=== PATIENT | female | born 1940 | race Caucasian/White ===

== ENCOUNTER 2017-11-05 10:19 | Emergency (ER) | payer OTHER, MEDICAID ==
[~2017-11-05] VITALS: Ht 152.4 cm; Wt 83.9 kg
[~2017-11-05 10:19] MED LIST: ATEN100T PO; LEVO137T24 PO; PREG50CA PO
--- NOTE | 2017-11-05 11:00 | NUR ---
BIB [facility] C/O SOB FROM HOME, NAD NOTED, VSS, RESP EVEN AND UNLABORED, PT WAS PUT ON MONITOR, WAITING FOR MD MARSHALL.
[2017-11-05] MEDS ORDERED: methylPREDNISolone SOD SUCC 125 MG/2ML VIAL ONE (11:19)
[2017-11-05] MEDS ORDERED: IPRATROPIUM NEB FS 0.5 MG/2.5 ML AMPUL.NEB NEB ONE (11:30)
[2017-11-05] MEDS ORDERED: methylPREDNISolone SOD SUCC 125 MG/2ML VIAL IV ONE (11:30)
[2017-11-05] MEDS ORDERED: ALBUTEROL FS 2.5 MG/0.5 ML VIAL.NEB NEB ONE (11:30)
[2017-11-05 11:32] LABS: BASOPHILS # (AUTO) 0.1 /CMM (0.0-0.2); BASOPHILS % (AUTO) 0.7 % (0.0-2.0); EOSINOPHILS % (AUTO) 1.3 % (0.0-6.0); HEMATOCRIT 28 % (33-45); HEMOGLOBIN 8.7 g/dL (11.5-14.8); LYMPHOCYTES # (AUTO) 2.2 /CMM (0.8-4.8); LYMPHOCYTES % (AUTO) 19.5 % (20.0-44.0); MEAN CORPUSCULAR HGB CONC 32 g/dl (31.0-36.0); MEAN CORPUSCULAR VOLUME 66 fL (82-100); MONOCYTES # (AUTO) 0.8 /CMM (0.1-1.30); MONOCYTES % (AUTO) 7.2 % (2.0-12.0); NEUTROPHILS # (AUTO) 8.1 /CMM (1.8-8.9); NEUTROPHILS % (AUTO) 71.3 % (43.0-81.0); PLATELET COUNT (AUTO) 268 /CMM (150-450); RDW COEFFICIENT OF VARIATION 18.7 (11.5-15.0); RED BLOOD CELL COUNT(AUTO) 4.21 MIL/uL (4.0-5.2); WHITE BLOOD COUNT (AUTO) 11.3 K/uL (4.3-11.0)
[2017-11-05 11:50] LABS: CALCIUM, SERUM 8.9 mg/dL (8.5-10.1); CARBON DIOXIDE 28 mmol/L (21-32); CHLORIDE 104 mmol/L (98-107); GLUCOSE 93 mg/dL (74-106); POTASSIUM 4.1 mmol/L (3.5-5.1); SODIUM SERUM 140 mmol/L (136-145); UREA NITROGEN, BLOOD 24 mg/dL (7-18)
[2017-11-05 11:58] LABS: TROPONIN I 0.022 ng/mL (0.00-0.056)
[2017-11-05 12:16] LABS: INR 0.92 (0.85-1.15)
[2017-11-05] MEDS ORDERED: FUROSEMIDE 40 MG/4 ML VIAL ONE (12:57)
[2017-11-05] MEDS ORDERED: FUROSEMIDE 40 MG/4 ML VIAL IV ONE (13:00)
[2017-11-05 13:15] VITALS: BP 149/82
--- NOTE | 2017-11-05 13:16 | NUR ---
Patient does not wish to proceed with medical care recommended by Dr. Etienne. Patient given information related to possible complications, up to and including , which could occur as a result of leaving the hospital at this time. Patient verbalizes understanding of risks involved due to leaving against medical advice. Patient has signed AMA form.
== END 2017-11-05 13:19 | disposition left against medical advice (07) ==
LOC: ER 10:20
DX: J44.1 Chronic obstructive pulmonary disease with (acute) exacerbation (principal); F17.200 Nicotine dependence, unspecified, uncomplicated
CPT/HCPCS: 36415; 71045; 80048; 83880; 84484; 85025; 85730; 93005; 96374; 96375; 99285; A4606; J1940; J2930; Z7610

== ENCOUNTER 2018-05-30 02:03 | Inpatient (IN) | payer MEDICARE, OTHER ==
[~2018-05-30] VITALS: Ht 167.6 cm; Wt 73.9 kg
--- NOTE | 2018-05-30 02:03 | NUR ---
PT BIB [facility] 102 WITH A C/O SOB. PT STATED THAT SHE WAS SOB ALL DAY AND IS HAVING A HARD TIME BREATHING. WHEEZES NOTED BILATERALLY AND TIGHTNESS NOTED. PT HAS COPD HX. PT WENT TO ER 1 AND IS ON THE MONITOR AND CONTINUOUS PULSE OX. PT REC'D A TOTAL OF 10MG ALBUTEROL IN THE FIELD. RT WAS CALLED.
--- NOTE | 2018-05-30 02:10 | NUR ---
O2 INCREASED TO 4LVIA NC. RT IS AT THE BEDSIDE.
--- NOTE | 2018-05-30 02:10 | NUR ---
BREATHING TX IS FINISHED. PT IS NOW ON 2L O2 VIA NC.
--- NOTE | 2018-05-30 02:13 | NUR ---
Note undone in EDM - 05/30/18 at 0229 by SAMUEL PT BIB [facility] 102 WITH A C/O SOB. PT STATED THAT SHE WAS SOB ALL DAY AND IS HAVING A HARD TIME BREATHING. WHEEZES NOTED BILATERALLY AND TIGHTNESS NOTED. PT HAS COPD HX. PT WENT TO ER 1 AND IS ON THE MONITOR AND CONTINUOUS PULSE OX. PT REC'D A TOTAL OF 10MG ALBUTEROL IN THE FIELD. RT WAS CALLED.
[2018-05-30] MEDS ORDERED: methylPREDNISolone SOD SUCC 125 MG/2ML VIAL ONE (02:16)
[2018-05-30] MEDS ORDERED: ALBUTEROL FS 2.5 MG/3 ML VIAL.NEB ONE ×2 (02:29→03:20)
[2018-05-30] MEDS ORDERED: IPRATROPIUM NEB FS 0.5 MG/2.5 ML AMPUL.NEB ONE (02:29)
[2018-05-30] MEDS ORDERED: methylPREDNISolone SOD SUCC 125 MG/2ML VIAL IV ONE (02:30)
[2018-05-30] MEDS ORDERED: ALBUTEROL FS 2.5 MG/3 ML VIAL.NEB CONTNEB ONE (02:30)
[2018-05-30] MEDS ORDERED: IPRATROPIUM NEB FS 0.5 MG/2.5 ML AMPUL.NEB NEB ONE (02:30)
--- NOTE | 2018-05-30 02:35 | NUR ---
CXR IN PROGRESS AT THE BEDSIDE.
--- NOTE | 2018-05-30 02:39 | NUR ---
PT IS ON A BREATHING TX. PT APPEARS TO BE RESTING COMFORTABLY IN BED.
[2018-05-30 02:55] LABS: CALCIUM, SERUM 9.1 mg/dL (8.5-10.1); CARBON DIOXIDE 31 mmol/L (21-32); CHLORIDE 105 mmol/L (98-107); CREATININE 1.3 mg/dL (0.6-1.3); GLUCOSE 107 mg/dL (74-106); POTASSIUM 6.1 mmol/L (3.5-5.1); SODIUM SERUM 142 mmol/L (136-145); UREA NITROGEN, BLOOD 23 mg/dL (7-18)
[2018-05-30 02:58] LABS: BASOPHILS # (AUTO) 0.1 /CMM (0.0-0.2); BASOPHILS % (AUTO) 1.2 % (0.0-2.0); EOSINOPHILS % (AUTO) 0.8 % (0.0-6.0); HEMATOCRIT 29 % (33-45); LYMPHOCYTES # (AUTO) 0.5 /CMM (0.8-4.8); MEAN CORPUSCULAR HGB CONC 31 g/dl (31.0-36.0); MEAN CORPUSCULAR VOLUME 69 fL (82-100); MONOCYTES # (AUTO) 0.1 /CMM (0.1-1.30); MONOCYTES % (AUTO) 1.1 % (2.0-12.0); NEUTROPHILS # (AUTO) 6.5 /CMM (1.8-8.9); NEUTROPHILS % (AUTO) 89.9 % (43.0-81.0); PLATELET COUNT (AUTO) 370 /CMM (150-450); RED BLOOD CELL COUNT(AUTO) 4.25 MIL/uL (4.0-5.2); WHITE BLOOD COUNT (AUTO) 7.3 K/uL (4.3-11.0)
--- NOTE | 2018-05-30 03:01 | NUR ---
PT IS C/O RT SIDED CHRONIC BACK PAIN. DR. MENDEZ IS AWARE.
[2018-05-30 03:09] LABS: ALANINE AMINOTRANSFERASE 51 U/L (12-78); ALBUMIN 3.5 g/dL (3.4-5.0); ALKALINE PHOSPHATASE 91 U/L (46-116); ASPARTATE AMINOTRANSFERASE 49 U/L (15-37); B-TYPE NATRIURETIC PEPTIDE 787 PG/ML (0-125); BILIRUBIN,DIRECT 0.1 mg/dL (0.0-0.2); BILIRUBIN,TOTAL 0.2 mg/dL (0.2-1.0); TOTAL PROTEIN, SERUM 7.2 g/dL (6.4-8.2)
--- NOTE | 2018-05-30 03:13 | NUR ---
UNABLE TO OBTAIN PT'S HOME MEDICATION LIST. PT IS NOT ABLE TO TELL ME WHAT MEDICATION/DOSAGE SHE TAKES. PT IS ON 3L O2 VIA NC "09/01". PT IS 'ON HOSPICE IN ORDER TO OBTAIN OXYGEN". [facility].
[2018-05-30] MEDS ORDERED: SODIUM POLYSTYRENE SULFONATE 15 G/60 ML BOTTLE ONE (03:18)
--- NOTE | 2018-05-30 03:25 | NUR ---
BREATHING TX STARTED.
[2018-05-30] MEDS ORDERED: SODIUM POLYSTYRENE SULFONATE 15 G/60 ML BOTTLE PO ONE (03:30)
[2018-05-30] MEDS ORDERED: ALBUTEROL FS 2.5 MG/3 ML VIAL.NEB NEB ONE (03:30)
--- NOTE | 2018-05-30 03:34 | NUR ---
BREATHING TX FINISHED. RT IS AT THE BEDSIDE.
[2018-05-30] MEDS ORDERED: PSEUDOEPHEDRINE HCL 30 MG TABLET ONE (03:39)
[2018-05-30] MEDS ORDERED: PSEUDOEPHEDRINE HCL 30 MG TABLET PO ONE (04:00)
--- NOTE | 2018-05-30 04:02 | NUR ---
PT APPEARS TO BE SLEEPING SOUNDLY.
--- NOTE | 2018-05-30 04:30 | NUR ---
SPOKE TO [facility]AVO [facility] RE: PT UPDATE.
--- NOTE | 2018-05-30 04:33 | NUR ---
CALLING REPORT TELE NURSE. NURSE TO CALL BACK.
--- NOTE | 2018-05-30 04:48 | NUR ---
REPORT GIVEN TO KEVYN HOFFMAN
--- NOTE | 2018-05-30 05:01 | NUR ---
PT STATED THAT HER CAREGIVER, [employer] THACKER, COMES 3 DAYS A WK AND WILL BE COMING TOMORROW. SHE CAN BE REACHED AT [phone]
[2018-05-30 05:05] VITALS: BP 119/63
--- NOTE | 2018-05-30 05:05 | NUR ---
RN INITIAL NOTES PATIENT ARRIVED VIA GURNEY. A/O X4, ON ROOM AIR, CURRENTLY NO S/S OF RESP DISTRESS. SR ON THE MONITOR, HR 70-80'S. UNABLE TO AMBULATE OF THE MOMENT DUE TO DYSPNEA ON EXERTION. PT SKIN IS INTACT. PT IS CONTINENT. LEFT AC 20G FLUSHED AND PATENT, NO S/S OF INFILTRATION/INFECTION, DRESSING CDI. BED LOW AND LOCKED, SIDERAILS UP, CALL LIGHT WITHIN REACH, BED ALARM ON FOR SAFETY. WILL MONITOR.
[2018-05-30 05:23] LABS: ABG BASE EXCESS 1.9 mmol/L; ABG OXYGEN SATURATION 93.3 % (92.0-98.5); ABG PCO2 51.5 mmHg (35.0-45.0); ABG PH 7.354 (7.350-7.450); AaDO2 92.9 mmHg; COHb 0.3 % (0.5-1.5); O2Hb 92.1 % (94.0-97.0); SITE, ABG Right Radial; VENT MODE, BG NASAL CANNULA 32%
[2018-05-30] MEDS ORDERED: methylPREDNISolone SOD SUCC 40 MG/ML VIAL IV SCH (05:30)
[2018-05-30] MEDS ORDERED: ACETAMINOPHEN 325 MG TABLET PO PRN (05:30)
[2018-05-30] MEDS ORDERED: LEVOFLOXACIN (500MG) 500 MG TABLET PO SCH (06:00)
[2018-05-30] MEDS ORDERED: ROPI1TAB2 PO (06:08)
--- NOTE | 2018-05-30 06:14 | NUR ---
RN NOTES NOTIFIED DR PICKENS THAT PATIENT IS REQUESTING TO GET HER ROPINIROLE HCL 1MG THAT SHE NORMALLY GETS AT HOME FOR RESTLESS LEG SYNDROME. DR PICKENS ORDERED THE MEDICATION
[2018-05-30] MEDS ORDERED: ropiniROLE 0.5 MG TABLET PO SCH ×2 (07:00→18:30)
[2018-05-30] MEDS: ropiniROLE 0.5 MG TABLET PO SCH ×3 (07:00→16:56)
[2018-05-30] MEDS ORDERED: IPRATROPIUM NEB FS 0.5 MG/2.5 ML AMPUL.NEB NEB PRN (07:30)
[2018-05-30] MEDS ORDERED: ALBUTEROL FS 2.5 MG/3 ML VIAL.NEB NEB PRN (07:30)
[2018-05-30 08:00] VITALS: BP 143/62
[2018-05-30] MEDS: methylPREDNISolone SOD SUCC 40 MG/ML VIAL IV SCH ×3 (08:28→20:00)
[2018-05-30] MEDS: HYDROCODONE/APAP 5/325MG 1 EACH TABLET PO PRN ×3 (08:29→16:57)
[2018-05-30 10:04] LABS: CALCIUM, SERUM 8.9 mg/dL (8.5-10.1); CARBON DIOXIDE 27 mmol/L (21-32); CHLORIDE 106 mmol/L (98-107); CREATININE 1.2 mg/dL (0.6-1.3); GLUCOSE 131 mg/dL (74-106); POTASSIUM 4.6 mmol/L (3.5-5.1); SODIUM SERUM 144 mmol/L (136-145); UREA NITROGEN, BLOOD 26 mg/dL (7-18)
[2018-05-30] MEDS: HYDROMORPHONE 1 MG/1 ML DISP.SYRIN IV PRN ×3 (11:52→20:01)
[2018-05-30] MEDS: CYCLOBENZAPRINE 10 MG TABLET PO PRN ×2 (12:33→20:00)
[2018-05-30] MEDS: ALBUTEROL FS 2.5 MG/0.5 ML VIAL.NEB NEB SCH ×2 (13:30→18:59)
[2018-05-30] MEDS: IPRATROPIUM NEB FS 0.5 MG/2.5 ML AMPUL.NEB IH SCH ×2 (13:30→18:59)
--- NOTE | 2018-05-30 15:18 | NUR ---
Met with patient,states she lives alone in the first floor apartment. Prior to admission, she ambulates with a walker and requires assistance with adl's. States she has a caregiver 3x/week from [employer] but not sure if it's homehealth or jail caregiver. She has home O2 due to COPD, she owns a walker and shower chair. Patient reports that if son not available to pick her up, she will need transportation arrangement when discharge. Addendum: 05/30/18 at 1520 by JAYLEN WATSON RN Amended: Links added.
--- NOTE | 2018-05-30 15:20 | NUR ---
per [facility]- prior to admit - patient was on hospice care with [facility] care [phone] and was revoked today 05/30/18. Patient primary payer will be Medicare until 06/18/18 . Addendum: 05/30/18 at 1824 by JAYLEN WATSON RN Amended: Links added.
[2018-05-30 16:00] VITALS: BP 137/68
[2018-05-30 20:00] VITALS: BP 137/74
--- NOTE | 2018-05-30 20:00 | NUR ---
RN OPENING NOTES RECEIVED REPORT FROM BRIAN Casiano RN. PATIENT A/A/O X2-3 W/ SOME CONFUSION BUT ABLE TO MAKE NEEDS KNOWN & STATE PAIN. BREATHING EVEN & UNLABORED, TOLERATING O2 @ 5LPM VIA NC. DENIES ANY SOB OR DIFFICULTY BREATHING. RADIAL PULSES PRESENT. LEFT AC IV #20 INTACT & PATENT W/ DRESSING CDI, SALINE LOCKED. C/O LOWER BACK & BILATERAL LEGS PAIN, 11/26. PAIN MED TO BE GIVEN. SAFETY MEASURES IN PLACE W/ SIDE RAILS UP & BED ALARM ON. INSTRUCTED TO USE CALL LIGHT FOR ASSISTANCE. WILL CONTINUE TO MONITOR.
[2018-05-30] MEDS ORDERED: FUROSEMIDE 20 MG/2 ML VIAL IV ONE (20:30)
[2018-05-30] MEDS: LORAZEPAM 1 MG TABLET PO PRN (21:27)
[2018-05-30] MEDS: HYDROCODONE/APAP 10/325MG 1 EA TABLET PO PRN (22:19)
[2018-05-30 23:20] LABS: IRON, SERUM 27 ug/dl (50-175); TOTAL IRON BINDING CAPACITY 438 ug/dl (250-450)
[2018-05-30 23:33] LABS: FERRITIN 21 ng/mL (8-388)
[2018-05-31] MEDS: HYDROMORPHONE 1 MG/1 ML DISP.SYRIN IV PRN ×2 (00:50→04:42)
[2018-05-31] MEDS: IPRATROPIUM NEB FS 0.5 MG/2.5 ML AMPUL.NEB IH SCH ×3 (01:26→13:06)
[2018-05-31] MEDS: ALBUTEROL FS 2.5 MG/0.5 ML VIAL.NEB NEB SCH ×3 (01:26→13:06)
[2018-05-31] MEDS: methylPREDNISolone SOD SUCC 40 MG/ML VIAL IV SCH ×3 (02:09→13:51)
[2018-05-31] MEDS: HYDROCODONE/APAP 10/325MG 1 EA TABLET PO PRN ×2 (02:09→08:14)
[2018-05-31 04:00] VITALS: BP 145/67
[2018-05-31 06:24] LABS: BASOPHILS % (AUTO) 0.1 % (0.0-2.0); HEMATOCRIT 27 % (33-45); HEMOGLOBIN 8.3 g/dL (11.5-14.8); LYMPHOCYTES # (AUTO) 0.6 /CMM (0.8-4.8); LYMPHOCYTES % (AUTO) 5.5 % (20.0-44.0); MEAN CORPUSCULAR HGB CONC 31 g/dl (31.0-36.0); MEAN CORPUSCULAR VOLUME 68 fL (82-100); MONOCYTES # (AUTO) 0.2 /CMM (0.1-1.30); MONOCYTES % (AUTO) 1.5 % (2.0-12.0); NEUTROPHILS % (AUTO) 92.9 % (43.0-81.0); PLATELET COUNT (AUTO) 352 /CMM (150-450); RED BLOOD CELL COUNT(AUTO) 3.97 MIL/uL (4.0-5.2); WHITE BLOOD COUNT (AUTO) 10.8 K/uL (4.3-11.0)
[2018-05-31 06:48] LABS: CALCIUM, SERUM 8.9 mg/dL (8.5-10.1); CARBON DIOXIDE 30 mmol/L (21-32); CHLORIDE 105 mmol/L (98-107); CREATININE 1.4 mg/dL (0.6-1.3); GLUCOSE 149 mg/dL (74-106); POTASSIUM 4.2 mmol/L (3.5-5.1); SODIUM SERUM 144 mmol/L (136-145); UREA NITROGEN, BLOOD 29 mg/dL (7-18)
[2018-05-31 06:51] LABS: IRON, SERUM 10 ug/dl (50-175); TOTAL IRON BINDING CAPACITY 420 ug/dl (250-450)
[2018-05-31] MEDS ORDERED: LEVOTHYROXINE SODIUM 137 MCG TABLET PO SCH (07:30)
[2018-05-31 07:37] LABS: LYMPHOCYTES % (MANUAL) 4 % (16-48); MONOCYTES % (MANUAL) 1 % (0-11.0); NEUTROPHILS % (MANUAL) 94 (42-76)
--- NOTE | 2018-05-31 07:50 | NUR ---
MS RN OPENING NOTE RECEIVED PATIENT IN BED LOCKED IN LOWEST POSITION WITH SIDERAILS UP X2 FOR SAFETY. ABLE TO COMMUNICATE NEEDS. ALERT AND ORIENTED X2-3 ON NASAL CANNULA TOLERATING WELL. NO SOB OR DISTRESS NOTED. CALL LIGHT WITHIN REACH. NO PAIN AT THIS TIME. IV INTACT AND PATENT NO REDNESS OR SWELLING NOTED. LABS THIS MORNING AWAITING RESULTS. PER DR PELLETIER TO MAINTAIN OFF BETA BLOCKERS. WILL CONTINUE TO MONITOR THROUGHOUT SHIFT
[2018-05-31 08:00] VITALS: BP 119/64
[2018-05-31] MEDS: ropiniROLE 0.5 MG TABLET PO SCH ×2 (08:13→12:13)
[2018-05-31 08:14] VITALS: BP 136/84
--- NOTE | 2018-05-31 08:19 | NUR ---
MS RN NOTE PATIENT REQUESTING NORCO 10/325 MG PO FOR PAIN 10/10 ON RIGHT HIP THROBBING. FACIAL GRIMACING NOTED, GRASPING SITE, SCREAMING. PAIN MEDICATION GIVEN. WILL REASSESS EFFECTIVENESS
[2018-05-31 08:41] LABS: FERRITIN 13 ng/mL (8-388)
[2018-05-31] MEDS ORDERED: PREGABALIN 25 MG CAPSULE PO SCH (09:00)
[2018-05-31] MEDS ORDERED: ATENOLOL 50 MG TABLET PO SCH (09:00)
[2018-05-31] MEDS: LORAZEPAM 1 MG TABLET PO PRN (13:51)
--- NOTE | 2018-05-31 13:55 | NUR ---
MS RN NOTE PATIENT REQUESTING PRN ATIVAN FOR ANXIETY. MEDICATION GIVEN PATIENT REFUSING SOLU-MEDROL DOSE
--- NOTE | 2018-05-31 15:05 | NUR ---
PATIENT REFUSED TO HAVE PICTURES TAKEN FOR DISCHARGE
--- NOTE | 2018-05-31 15:05 | NUR ---
BURR BENCH HAND NOTE PATIENT DISCHARGED IN STABLE CONDITION. ALL BELONGINGS ACCOUNTED FOR UPON DISCHARGE AND TAKEN WITH PATIENT. ALL DUE MEDICATIONS GIVEN ORDERED. ALL NURSING CARE NEEDS ATTENDED TO NEEDED. ON 2L/MIN OF OXYGEN NO SOB OR DISTRESS NOTED TOLERATING WELL. NO PAIN AT THIS TIME. ALERT AND ORIENTED X2-3 WITH PERIODS OF FORGETFULNESS.IV REMOVED, SKIN INTACT. WOUND PICTURES IN CHART. GOING HOME WITH HOSPICE VIA AMBULANCE.
== END 2018-05-31 15:05 | disposition hospice, home (50) | DRG 291 ==
LOC: ER 02:03 → TELE1 04:37 → TELE-TD 05:26 → MEDSG1 09:12
PROVIDERS: ADMIT Nurse Practitioner Acute Care; ATTEND Nurse Practitioner Acute Care
DX: I11.0 Hypertensive heart disease with heart failure (principal); N17.0 Acute kidney failure with tubular necrosis; J96.91 Respiratory failure, unspecified with hypoxia; J96.92 Respiratory failure, unspecified with hypercapnia; J44.1 Chronic obstructive pulmonary disease with (acute) exacerbation; E87.2 Acidosis; I50.33 Acute on chronic diastolic (congestive) heart failure; E03.9 Hypothyroidism, unspecified; E87.5 Hyperkalemia; F17.210 Nicotine dependence, cigarettes, uncomplicated; D50.9 Iron deficiency anemia, unspecified; G62.9 Polyneuropathy, unspecified; G25.81 Restless legs syndrome; R74.0 Nonspecific elevation of levels of transaminase and lactic acid dehydrogenase [LDH]; Z51.5 Encounter for palliative care
CPT/HCPCS: 36415; 36600; 71045-TC; 80048-TC; 80076-TC; 82728-TC; 82803-TC; 83540-TC; 83605-TC; 83880; 84484-TC; 85025-TC; 85045-TC; 87040-TC; 87081-TC; 87400; 94799-TC; A4606; A6403; G0378; J1170; J1940; J2920; J2930; Z7610